=== PATIENT | female | born 1985 | race Caucasian/White ===

== ENCOUNTER 2024-03-19 06:10 | Day surgery (SDC) | payer BC, SELFPAY ==
[2024-03-02 08:52] LABS: % Basophils 0.4 % (0-2); % Eosinophils 1.9 % (0-6); % Immature Granulocytes 0.2 % (0-0.5); % Lymphocytes 26.5 % (20.5-51.1); % Monocytes 6.2 % (1.7-9.3); % Neutrophils 64.8 % (42.2-75.2); Absolute Eosinophils 0.1 10^3/uL (0-0.7); Absolute Lymphocytes 1.4 10^3/uL (1.2-3.4); Absolute Monocytes 0.3 10^3/uL (0.1-0.6); Absolute Neutrophils 3.5 10^3/uL (1.4-6.5); Hematocrit 37.9 % (37.0-47.0); Hemoglobin 13.4 g/dL (12.0-16.0); Mean Corp Hgb Conc. 35.4 g/dL (33.0-37.0); Mean Corpuscular Hgb 30.9 pg (27.0-31.0); Mean Corpuscular Volume 87.3 fL (81.0-99.0); Mean Platelet Volume 11.1 fL (7.4-10.4); Nucleated Red Blood Cells % 0 %; Platelet Count 290 10^3/uL (130-400); Red Blood Cell Count 4.34 10^6/uL (4.20-5.40); Red Cell Dist. Width 12.8 % (11.5-14.5); White Blood Cell Count 5.3 10^3/uL (4.8-10.8)
[2024-03-02 09:13] LABS: Beta HCG Quantitative < 2.39 mIU/ml; Blood Urea Nitrogen 14 mg/dl (7-17); Calcium 9.1 mg/dl (8.4-10.2); Carbon Dioxide 22 mmol/L (22-30); Chloride 105 mmol/L (98-107); Glucose 90 mg/dl (70-99); Potassium 4.2 mmol/L (3.5-5.1); Sodium 138 mmol/L (135-145); eGFR > 60.00
[2024-03-02 14:29] VITALS: BMI 31.0
[2024-03-19] VITALS (8 sets, daily range): BP systolic 106–122; BP diastolic 66–85; BMI 31.0
[2024-03-19] MEDS: TRANSDERM-SCOP 1 PATCH TRANSDERM (07:03)
== END 2024-03-19 10:30 | disposition home or self-care (01) ==
LOC: SDS 06:10
PROVIDERS: ATTENDING PHYSICIAN Obstetrics & Gynecology; FAMILY PHYSICIAN Internal Medicine
DX: Z30.2 Encounter for sterilization (principal); N97.9 Female infertility, unspecified; D17.79 Benign lipomatous neoplasm of other sites; Z80.41 Family history of malignant neoplasm of ovary; Z87.59 Personal history of other complications of pregnancy, childbirth and the puerperium
CPT/HCPCS: 11403; 58661; 88302; 88304; 36415; 80048; 84702; 85025; 86850; 86900; 86901; C1776